=== PATIENT | female | born 1970 | race Caucasian/White ===

== ENCOUNTER → 2018-02-19 | Outpatient (CLI) | payer OTHER | END | disposition home or self-care (01) | LOC: CARD 15:00 | DX: R07.89 Other chest pain (principal); R00.1 Bradycardia, unspecified; R06.02 Shortness of breath ==

== ENCOUNTER 2018-03-10 14:48 | Emergency (ER) | payer OTHER ==
[~2018-03-10] VITALS: Ht 172.7 cm; Wt 128.8 kg
[2018-03-10] VITALS (12 sets, daily range): BP systolic 73–104; BP diastolic 0–62
[2018-03-10] MEDS ORDERED: DULOXETINE HCL20 MG PO (15:10)
[2018-03-10] MEDS ORDERED: PAROXETINE HCL20 MG PO (15:10)
[2018-03-10] MEDS ORDERED: VENLAFAXINE HY150 M2 PO (15:11)
[2018-03-10] MEDS ORDERED: PROPRANOLOL HCL80 M1 PO (15:12)
[2018-03-10] MEDS ORDERED: FUROSEMIDE20 M1 PO (15:12)
[2018-03-10] MEDS ORDERED: TRAZADONE HYDR100 MG PO (15:13)
[2018-03-10] MEDS ORDERED: TOPAMAX100 M1 PO (15:14)
[2018-03-10] MEDS ORDERED: ONDANSETRON HYDR4 MG PO (15:14)
[2018-03-10] MEDS ORDERED: POLYETHYLENE G500 GM MC (15:15)
[2018-03-10 15:24] LABS: BASO % 0.4 % (0.0-1.0); EOS # 0.4 10*3/uL (0.0-0.4); EOS % 3.5 % (1.0-4.0); HEMATOCRIT 36.1 % (37.0-47.0); HEMOGLOBIN 11.6 g/dl (12.0-16.0); LYMPH # 3.5 10*3/uL (1.3-4.4); MEAN CELL VOLUME 96.3 fl (81.0-99.0); MEAN CORPUSCULAR HGB 30.9 pg (27.0-31.0); MEAN CORPUSCULAR HGB CONC 32.1 g/dl (33.0-37.0); MEAN PLATELET VOLUME 9.9 fl (9.6-12.3); MONO # 0.6 10*3/uL (0.1-1.0); MONO % 5.8 % (3.0-9.0); NEUT # 5.7 10*3/uL (2.3-7.9); NEUT % 56.1 % (47.0-73.0); PLATELET COUNT AUTOMATED 305 10*3/uL (130-400); RED BLOOD COUNT 3.75 10*6/uL (4.10-5.10); RED CELL DISTRI WIDTH 13.2 % (0-14.5); WHITE BLOOD COUNT 10.2 10*3/uL (4.8-10.8)
[2018-03-10 15:34] LABS: ACT PARTIAL THROMBO TIME 27.9 SECONDS (20.8-31.5)
[2018-03-10 15:45] LABS: ALBUMIN 3.3 gm/dl (3.1-4.5); BUN 13 mg/dl (7-24); CHLORIDE 110 mmol/L (98-107); CREATININE 1.04 mg/dL (0.55-1.02); POTASSIUM 4.2 mmol/L (3.5-5.1); SGOT/AST 8 IU/L (3-35); SGPT/ALT 12 U/L (12-78); SODIUM 143 mmol/L (136-145); TOTAL PROTEIN 7.2 gm/dL (6.4-8.2)
[2018-03-10 15:47] LABS: ALKALINE PHOSPHATASE 100 U/L (45-117); TROPONIN I < 0.015 ng/ml (<0.045)
[2018-03-10 18:16] LABS: LIPASE 67 U/L (73-393)
== END 2018-03-10 18:54 | disposition short-term general hospital (02) ==
LOC: ED 14:48 → EDHOLD 18:00 → ED 18:54
PROVIDERS: Emergency Medicine
DX: R07.9 Chest pain, unspecified (principal); Z88.1 Allergy status to other antibiotic agents; Z88.8 Allergy status to other drugs, medicaments and biological substances; Z79.899 Other long term (current) drug therapy; Z90.710 Acquired absence of both cervix and uterus; Z98.51 Tubal ligation status